=== PATIENT | female | born 1965 | race Caucasian/White ===

== ENCOUNTER 2018-07-02 18:38 | Emergency (ER) | payer BC ==
[2018-07-02 19:16] VITALS: BP 128/75; PULSE 66; TEMP 97.6; BMI 34.3
--- NOTE | 2018-07-02 19:35 | PDOC ---
History of Present Illness - General History Source: Patient Exam Limitations: No Limitations - History of Present Illness Initial Comments: 07/02/18 19:32 A portion of this note was documented by scribe services under my direction. I have reviewed the details of the note, within reason, and agree with the documentation with the following case summary and management plan written by me. Patient treated in the ED. Nursing notes are reviewed and incorporated into the medical decision-making. Vital signs reviewed. Assessment and plan: This is a 52-year-old female who was had 3 weeks of upper respiratory type symptoms. Patient is just finishing a Z-Ron. Patient also already has a nebulizer which is not helping and comes in complaining of persistent cough with some postnasal drip. Patient's lungs are clear on my exam there is no wheezing otherwise respiratory rate is normal she is in no distress and looks well hydrated Patient was reassured that this is viral etiology. Told to follow up with her primary care doctor I will give her Smith Donaldson that she can take which should be helpful with her cough and discharged her home <Alistair Day I - Last Filed: 07/02/18 19:32> - History of Present Illness Initial Comments: 07/02/18 19:41 The patient is a 52 year old female, who presents to the ED complaining of fever , cough, shortness of breath, sore throat and lost voice for the past 6 days. She reports that she went to another ED 6 days ago and was diagnosed with broncitis. She was prescribed Cipro and discharged. Currently the patient has 2 pills left of her cipro. She reports that her cough is dry in nature but persistent. She notes that she has been using her inhaler with minimal relieve of her symptoms. The patient denies chest pain, headache and dizziness. Denies fever, chills, nausea, vomiting, diarrhea or constipation. PAST MEDICAL HISTORY: no significant history PAST SURGICAL HISTORY: no significant history FAMILY HISTORY: no pertinent history SOCIAL HISTORY: Pt lives with family and is employed. MEDICATIONS: reviewed ALLERGIES: As per nursing notes General: (+) Fever. No chills, no weakness, no weight loss HEENT: (+) Lose voice, sore throat. No change in vision. No ear pain CardioVascular: (+) Shortness of breath. No chest pain Respiratory: (+) Cough. No wheezing. Gastrointestinal: no nausea, vomiting, diarrhea or constipation, No rectal bleeding Genitourinary: No dysuria, hematuria, or frequency Musculoskeletal: No joint or muscle pain or swelling Neurologic: No headache, vertigo, dizziness or loss of consciousness Psychiatric: nor depression Skin: No rashes or easy bruising Endocrine: no increased thirst or abnormal weight change Allergic: no skin or latex allergy All other systems reviewed and normal General: Well-nourished well-developed individual, no acute distress HEENT: Throat: Normal, tonsils normal, no erythema or exudate Neck: (+) Lymphanopathy. Supple, no meningeal signs. Eyes::Pupils equal reactive and round, extraocular motion intact Chest: Nontender to palpation Cardiac: S1-S2 normal, regular rate and rhythm, no murmurs rubs or gallops Respiratory: Lungs clear to auscultation bilateral Abdomen: Soft, nondistended, normal bowel sounds, nontender to palpation diffusely Extremities: Warm, dry, no cyanosis, clubbing, or edema Skin: No rashes Neuro: Alert and oriented x3, nonfocal exam, grossly intact, normal gait Psych: Normal mood and affect <Philippe Grande - Last Filed: 07/02/18 19:41> - General Chief Complaint: Respiratory Stated Complaint: COLD SYMPTOMS FOR 3 WEEKS Time Seen by Provider: 07/02/18 19:25 Past History - Past Medical History COPD: No Other medical history: DENIES - Suicide/Smoking/Psychosocial Hx Smoking History: Never smoked Information on smoking cessation initiated: No Hx Alcohol Use: No Drug/Substance Use Hx: No <Alistair Day I - Last Filed: 07/02/18 19:32> <Philippe Grande - Last Filed: 07/02/18 19:41> - Past Medical History Allergies/Adverse Reactions: Allergies Allergy/AdvReac Type Severity Reaction Status Date / Time No Known Allergies Allergy Unverified 07/02/18 18:51 Home Medications: Ambulatory Orders Acetaminophen [Tylenol] 650 mg PO BID PRN 07/02/18 Albuterol Sulfate Inhaler - [Ventolin HFA Inhaler -] 2 inhaler IN BID PRN Azithromycin 250 mg PO DAILY 07/02/18 Benzonatate [Tessalon Pearls -] 200 mg PO TID #42 cap 07/02/18 *Physical Exam - Vital Signs Last Vital Signs Temp Pulse Resp BP Pulse Ox 97.6 F 66 18 128/75 07/02/18 18:39 07/02/18 18:39 07/02/18 18:39 07/02/18 18:39 <Alistair Day I - Last Filed: 07/02/18 19:32> - Vital Signs Last Vital Signs Temp Pulse Resp BP Pulse Ox 97.6 F 66 18 128/75 07/02/18 18:39 07/02/18 18:39 07/02/18 18:39 07/02/18 18:39 <Philippe Grande - Last Filed: 07/02/18 19:41> Moderate Sedation - Procedure Monitoring Vital Signs: Procedure Monitoring Vital Signs Temperature 97.6 F 07/02/18 18:39 Pulse Rate 66 07/02/18 18:39 Respiratory Rate 18 07/02/18 18:39 Blood Pressure 128/75 07/02/18 18:39 O2 Sat by Pulse Oximetry (%) <Alistair Day I - Last Filed: 07/02/18 19:32> - Procedure Monitoring Vital Signs: Procedure Monitoring Vital Signs Temperature 97.6 F 07/02/18 18:39 Pulse Rate 66 07/02/18 18:39 Respiratory Rate 18 07/02/18 18:39 Blood Pressure 128/75 07/02/18 18:39 O2 Sat by Pulse Oximetry (%) <Philippe Grande - Last Filed: 07/02/18 19:41> *DC/Admit/Observation/Transfer - Discharge Dispostion Decision to Admit order: No <Alistair Day I - Last Filed: 07/02/18 19:32> <Philippe Grande - Last Filed: 07/02/18 19:41> Diagnosis at time of Disposition: Persistent cough for 3 weeks or longer - Discharge Dispostion Condition at time of disposition: Stable - Prescriptions Prescriptions: Benzonatate [Tessalon Pearls -] 200 mg PO TID #42 cap - Patient Instructions Additional Instructions: Take Tessalon Perles one 3 times a day for the next 14 days or as long as needed for the cough. Return to the emergency department immediately with ANY new, persistent or worsening symptoms. Continue any medications as previously prescribed by your physician. You should follow up with your primary doctor as soon as possible regarding today's emergency department visit. . Please make sure your doctor reviews the results of your emergency evaluation. Thank you for coming to the Emergency Department today for your care. It was a pleasure to see you today. Please note that your evaluation is INCOMPLETE until you follow-up with your doctor.
== END 2018-07-02 20:05 | disposition home or self-care (01) ==
LOC: FER 18:38
DX: R05 Cough (principal)
CPT/HCPCS: 99282-25